=== PATIENT | female | born 2000 | race Caucasian/White ===

== ENCOUNTER 2022-09-23 07:16 | Day surgery (SDC) | payer OTHER, SELFPAY ==
--- NOTE | 2022-09-23 | PATH_ITS ---
[facility] Accession Number: [id number] No. of containers..02 Tissue . 01 Material submitted: . PART A: duodenum - DUODENUM PART B: gastrointestinal site - ANTRUM . 01 Diagnosis: A. Duodenum, Biopsy: Duodenal mucosa with no diagnostic abnormality. Negative for active inflammation, features of sprue, dysplasia, or malignancy. . B. Gastric Antrum, Biopsies: Gastric antral and body mucosa with mild chronic inflammation. Negative for Helicobacter organisms by immunohistochemistry. Negative for intestinal metaplasia. Negative for dysplasia or malignancy. MRV 09/27/2022 1532 Local . 01 Electronically signed: . Tunde Landry MD, PhD, Pathologist NPI- [id number] . 01 Gross description: . Part A: DUODENUM: Received in formalin are 4 fragment(s) of [place], soft tissue measuring 0.4 x 0.1 x 0.1 cm to 0.2 x 0.1 x 0.1 cm submitted entirely in 1 cassette(s) Part B: ANTRUM: Received in formalin is 1 fragment(s) of [place], soft tissue measuring 0.5 x 0.2 x 0.1 cm submitted entirely in 1 cassette(s) /CPE 09/25/2022 0556 Local . 01 Microscopic: . B. An immunohistochemical stain was performed to evaluate for Helicobacter organisms and is negative. The control stain showed appropriate reactivity. . * This test was developed and its performance characteristics determined by [facility]. It has not been cleared or approved by the U.[place]. Food and Drug Administration. The FDA has determined that such clearance or approval is not necessary. This test is used for clinical purposes. It should not be regarded as investigational or for research. . 01 Pathologist provided ICD-10: K29.70 . 01 CPT . 106224, 764693, [id number] Specimen Comment: A courtesy copy of this report has been sent to [phone] Performed at: 01 [facility] [address] [place] [address] [id number] MD Vic Taylor MD Phone: [phone]
[2022-09-23 07:42] VITALS: BMI 26.2
[2022-09-23 07:47] VITALS: BP 132/81; PULSE 74; RESP 16; TEMP 36.4; O2SAT 98
--- NOTE | 2022-09-23 07:59 | PM.HP.1 ---
History of Present Illness History of Present Illness Date Patient Seen: 09/23/22 Time Patient Seen: 07:59 Chief complaint: EGD w/poss bx Narrative: I reviewed the recent office note. No significant changes. CRP was negative. PFSH Surgical History History of repair of ACL Social History household members: friend(s) Smoking Status: Never smoker alcohol intake: never Meds Home Medications and Allergies Home Medications Medication Instructions Recorded Confirmed Type omeprazole 20 mg capsule,delayed 20 mg PO TID 09/23/22 09/23/22 History release Allergies Allergy/AdvReac Type Severity Reaction Status Date / Time No Known Drug Allergies Allergy Verified 09/23/22 07:41 Review of Systems Review of Systems ROS: Yes All systems reviewed with the patient and are negative except as otherwise documented Exam Vital Signs (past 8 hours): - 09/23/22 07:47 Temperature 97.6 F Pulse Rate 74 Respiratory Rate 16 Blood Pressure 132/81 Pulse Oximetry 98 Oxygen Delivery Method Room Air Oxygen Delivery Method Room Air Const General: cooperative HENMT Head: normal to inspection Eyes General: appearance normal, both eyes and all related structures Neck Neck: normal visual inspection Chest Chest: normal inspection of the chest Resp Effort & Inspection: normal respiratory effort Cardio Rate: regular rate GI Inspection: normal to inspection Skin General: no rashes or lesions noted Neuro General: patient alert and patient awake Extrem General: normal to inspection and no pedal edema Psych Appearance: grossly normal Assessment & Plan Assessment & Plan narrative: 21-year-old female with nausea dyspepsia bloating. EGD with small bowel biopsies is pursued today
--- NOTE | 2022-09-23 08:01 | PM.PREOP ---
Pre-operative Note Interval Note History & Physical reviewed/Exam performed by Physician: Yes Changes to H&P: No ASA Class (for procedural sedation): I
[2022-09-23] MEDS: LACTATED RINGERS 1,000 ML 120 ML IV (08:07)
--- NOTE | 2022-09-23 08:53 | PM.OP.EGD ---
Operative Date/Time/Diagnoses Date of procedure: 09/23/22 Time of procedure: 08:53 Pre-op diagnosis: Nausea dyspepsia bloating Post-op diagnosis: same Procedure & Clinicians Study performed: EGD with biopsies Same procedure as scheduled: Yes Indications: Nausea dyspepsia bloating Surgeon: Emiliano Carter Procedure Notes SCOAP/Timeout: Done Procedure in detail: After the risks and benefits were explained, written and verbal informed consent was obtained. The patient was brought into the procedure room and placed into the left lateral decubitus position. Please see anesthesia notes for sedation details. The scope was introduced into the mouth through the bite block and advanced under direct visualization to the 2nd portion of the duodenum. The scope was slowly withdrawn carefully examining the mucosa for any defects or lesions. Retroflexed views were accomplished in the stomach. The stomach was decompressed, the scope was then removed from the patient who tolerated the procedure well. Sedation minutes: 9 Complications: none Impression: 1. Duodenum: This was visually normal from the bulb through to the 2nd portion. Random D2 biopsies were taken for exclusion of sprue. 2. Stomach: No ulcers no gastric outlet obstruction no mass lesions. Slightly J-shaped stomach. Minimal gastropathy and therefore biopsies were taken for exclusion of H pylori from the antrum. Retroflexed views of the LES were unremarkable. 3. Esophagus: The squamocolumnar junction correlated with the top of the gastric folds. GEJ was at 41 cm from the incisors. No acute erosive changes no strictures no mass lesions. The esophagus was normal. Endoscopic diagnosis 1. Mild gastropathy 2. Otherwise visually unremarkable EGD Post-procedure Plan for aftercare: 1. Await histopathology. 2. If Helicobacter is found it will need to be eradicated with standard triple therapy. Disposition: PACU
[2022-09-23 08:55] VITALS: BP 105/44; PULSE 88; RESP 16; TEMP 36.3; O2SAT 99
[2022-09-23 09:00] VITALS: BP 111/63; PULSE 85; RESP 16; O2SAT 99
[2022-09-23 09:05] VITALS: BP 111/63; PULSE 88; RESP 97; TEMP 36.3
== END 2022-09-23 09:25 | disposition home or self-care (01) ==
PROVIDERS: PCP Student in an Organized Health Care Education/Training Program; Visit Provider Internal Medicine Gastroenterology
PROC: 0DJ08ZZ Inspection of Upper Intestinal Tract, Via Natural or Artificial Opening Endoscopic (ICD-10-PCS; CPT 43235; principal; 2022-09-23 08:30)
DX: R10.13 Epigastric pain (principal); R14.0 Abdominal distension (gaseous); R11.0 Nausea; K31.9 Disease of stomach and duodenum, unspecified; K29.50 Unspecified chronic gastritis without bleeding
CPT/HCPCS: 43239; J2704